=== PATIENT | female | born 1975 | race Hispanic/Latino ===

== ENCOUNTER 2016-10-05 06:14 | Emergency (ER) | payer OTHER ==
[~2016-10-05] VITALS: Ht 154.9 cm; Wt 83.2 kg
[~2016-10-05 06:14] MED LIST: CYCL10TA9 PO; CYCL5TAB PO; ERYT1OIN7 AFFECT_EYE; IBUP800T28 PO
[2016-10-05 06:16] VITALS: BP 115/81; PULSE 61; RESP 16; O2SAT 98
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
[2016-10-05] MEDS ORDERED: oxyCODONE-Acetamin 5-325 mg Tablet PO ONE (08:10)
[2016-10-05] MEDS ORDERED: OXYC1TAB24 PO (08:23)
[2016-10-05 08:38] VITALS: BP 143/98; PULSE 68; RESP 18; O2SAT 100
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
== END 2016-10-05 08:51 | disposition home or self-care (01) ==
LOC: SED 06:14
DX: S80.02XA Contusion of left knee, initial encounter (principal); W22.8XXA Striking against or struck by other objects, initial encounter; Y93.89 Activity, other specified; Y99.0 Civilian activity done for income or pay; Y92.513 Shop (commercial) as the place of occurrence of the external cause; Z87.39 Personal history of other diseases of the musculoskeletal system and connective tissue; Z88.5 Allergy status to narcotic agent; Z88.8 Allergy status to other drugs, medicaments and biological substances

== ENCOUNTER 2016-12-17 09:01 | Emergency (ER) | payer OTHER ==
[~2016-12-17] VITALS: Ht 154.9 cm; Wt 80.9 kg
[~2016-12-17 09:01] MED LIST changes: +OXYC1TAB24 PO
[2016-12-17 09:04] VITALS: BP 142/97; PULSE 71; RESP 12; O2SAT 99
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
[2016-12-17] MEDS ORDERED: HYDROmorphone 0.5 mg/0.5 mL iSecure Syringe IM ONE (09:25)
[2016-12-17] MEDS ORDERED: DIAZ5TAB PO (10:51)
[2016-12-17] MEDS ORDERED: IBUP400T22 PO (10:51)
[2016-12-17 11:10] VITALS: BP 107/74; PULSE 56; RESP 14; O2SAT 99
== END 2016-12-17 11:10 | disposition home or self-care (01) ==
LOC: SED 09:01
DX: M54.32 Sciatica, left side (principal); M54.2 Cervicalgia; M54.9 Dorsalgia, unspecified; Z88.5 Allergy status to narcotic agent
CPT/HCPCS: 96372; 99283; J1170; J1885

== ENCOUNTER 2017-04-18 18:40 | Emergency (ER) | payer OTHER ==
[~2017-04-18] VITALS: Ht 154.9 cm; Wt 76.4 kg
[~2017-04-18 18:40] MED LIST changes: +DIAZ5TAB PO; +IBUP400T22 PO
[2017-04-18 18:57] VITALS: BP 120/78; PULSE 56; O2SAT 100
== END 2017-04-18 21:17 | disposition left against medical advice (07) ==
LOC: SED 18:40
DX: Z53.21 Procedure and treatment not carried out due to patient leaving prior to being seen by health care provider (principal)